=== PATIENT | male | born 1970 | race Hispanic/Latino ===

== ENCOUNTER → 2021-05-11 | Outpatient (CLI) | payer OTHER | END | disposition home or self-care (01) | LOC: RAH 11:29 | PROVIDERS: ATTEND Orthopaedic Surgery | DX: M19.012 Primary osteoarthritis, left shoulder (principal); M67.812 Other specified disorders of synovium, left shoulder; M24.812 Other specific joint derangements of left shoulder, not elsewhere classified | CPT/HCPCS: 73221 ==